=== PATIENT | male | born 1980 | race Native Hawaiian/Other Pacific Islander ===

== ENCOUNTER 2017-11-27 14:35 | Emergency (ER) | payer OTHER ==
[~2017-11-27] VITALS: Ht 177.8 cm; Wt 73.0 kg
[~2017-11-27 14:35] MED LIST: IBUP-232 PO; LORT5TAB PO
[2017-11-27 14:57] VITALS: BP 130/62; PULSE 66; RESP 22; TEMP 98.5; O2SAT 99
[2017-11-27] MEDS ORDERED: ORPHENADRINE INJ 60 MG/2 ML AMP IV ONE (15:30)
[2017-11-27] MEDS ORDERED: ONDANSETRON ODT 4 MG TAB PO ONE (15:30)
[2017-11-27] MEDS ORDERED: MORPHINE SULFATE 4 MG/ML INJ IV PUSH ONE (15:30)
[2017-11-27] MEDS ORDERED: KETOROLAC TROMETHAMINE 30 MG/ML (IVP) VIAL IV PUSH ONE (15:30)
--- NOTE | 2017-11-27 15:34 | PD ---
HPI Chief Complaint: Back/ Neck Pain or Injury Time Seen by Provider: 15:21 Travel History International Travel<30 days: No Contact w/Intl Traveler<30days: No Traveled to known affect area: No History of Present Illness HPI 37-year-old male presents for evaluation of low back pain. Reports that this morning he was bending over when he felt a sudden sharp pain in his lower back. Pain is sharp and constant, worse with movement. Denies any numbness tingling or weakness lower extremities, bowel or bladder incontinence, saddle anesthesia, abdominal pain, flank pain, nausea or vomiting. He tried using ibuprofen, diclofenac cream and hydrocodone acetaminophen with minimal relief. No other complaints. [facility] Social History Alcohol Use: Yes Tobacco Use: No Substance Use: No Allergies-Medications (Allergen,Severity, Reaction): Coded Allergies: No Known Allergies (Verified Adverse Reaction, Unknown, 11/27/17) Reported Meds & Prescriptions Reported Meds & Active Scripts Active Baclofen 10 Mg Tab 10 Mg PO Q8HR 10 Days Percocet (Oxycodone-Acetaminophen) 5-325 mg Tab 1 Tab PO Q6H PRN Reported Hydrocodone-Acetaminophen 5-300 Mg Tab 1 Tab PO Q6H PRN Review of Systems Except as stated in HPI: all other systems reviewed are Neg Physical Exam Narrative GENERAL: Well-developed well-nourished male who appears uncomfortable. SKIN: Warm and dry. HEAD: Atraumatic. Normocephalic. EYES: Pupils equal and round. No scleral icterus. No injection or drainage. ENT: No nasal bleeding or discharge. Mucous membranes pink and moist. NECK: Trachea midline. No JVD. CARDIOVASCULAR: Regular rate and rhythm. No murmur appreciated. RESPIRATORY: No accessory muscle use. Clear to auscultation. Breath sounds equal bilaterally. GASTROINTESTINAL: Abdomen soft, non-tender, nondistended. Hepatic and splenic margins not palpable. MUSCULOSKELETAL: No obvious deformities. There is some tenderness to palpation to the lumbar spine and paravertebral musculature. 5 out of 5 muscle strength of the lower extremities bilaterally. NEUROLOGICAL: Awake and alert. No obvious cranial nerve deficits. Motor grossly within normal limits. Normal speech. Data Data Last Documented VS Vital Signs Date Time Temp Pulse Resp B/P (MAP) Pulse Ox O2 Delivery O2 Flow Rate FiO2 11/27/17 14:57 98.5 66 22 130/62 (84) [address] Lumb Spine W/O Contrast (11/27/17 ) Morphine Inj (Morphine Inj) (11/27/17 15:30) Ondansetron Odt (Zofran Odt) (11/27/17 15:30) Ketorolac Inj (Toradol Inj) (11/27/17 15:30) Orphenadrine Inj (Norflex Inj) (11/27/17 15:30) Ed Discharge Order (11/27/17 17:22) MDM Medical Decision Making Medical Screen Exam Complete: Yes Emergency Medical Condition: Yes Medical Record Reviewed: Yes Differential Diagnosis Lumbar strain, compression fracture, spinal stenosis, herniated nucleus pulposus , piriformis syndrome Narrative Course CT of the lumbar spine reveals CONCLUSION: No abnormality is identified to explain the clinical symptoms. There is mild degenerative disc disease at L4-L5 and L5-S1. The patient's pain appears musculoskeletal. He was given IV analgesics with some improvement in his pain. He has a medication similar to diclofenac at home. He will be discharged with a short course of baclofen as well as Percocet for breakthrough pain because he is going to be flying soon. Recommended follow-up close with primary care physician. Diagnosis Primary Impression: Lumbar strain Additional Instructions: Medication as needed. Do not drive or drink alcohol when taking these medications as they may cause sedation. Avoid strenuous activity or heavy lifting. Perform activities of daily living as tolerated. Follow-up with primary care physician. Return for any emergent medical conditions. Med/Other Pt SpecificInfo: Prescription(s) given Scripts Baclofen (Baclofen) 10 Mg Tab 10 MG PO Q8HR for 10 Days, TAB 0 Refills Prov: Gail Torres DO 11/27/17 Oxycodone-Acetaminophen (Percocet) 5-325 mg Tab 1 TAB PO Q6H Y for PAIN, #15 TAB 0 Refills Prov: Gail Torres DO 11/27/17 Disposition: 01 DISCHARGE HOME Condition: Stable Vitaliy Mendoza November 27, 2017 15:34
[2017-11-27] MEDS ORDERED: HYDR-4107 PO (16:02)
--- NOTE | 2017-11-27 17:01 | RADRPT ---
EXAM DATE: 11/27/2017 4:52 PM EDT AGE/SEX: 37 years / Male INDICATIONS: Sudden onset of lower back pain CLINICAL DATA: This is the patient's initial encounter. Patient reports that signs and symptoms have been present for 1 day and indicates a pain score of 8/10. MEDICAL/SURGICAL HISTORY: None. None. RADIATION DOSE: 17.35 CTDI (mGy) COMPARISON: No prior [facility] exams available for comparison. TECHNIQUE: Contiguous axial images were acquired with a multirow detector CT scanner without contras t. Multiplanar reconstructions in the sagittal and coronal plane were also performed. Using automate d exposure control and adjustment of the mA and/or kV according to patient size, radiation dose was k ept as low as reasonably achievable to obtain optimal diagnostic quality images. FINDINGS: Vertebrae: Normal vertebral body height. No fracture or compression deformity is present. Alignment: There is no anterolisthesis or retrolisthesis. T12-L1: No disc herniation, canal stenosis, or neural foraminal stenosis. L1-L2: No disc herniation, canal stenosis, or neural foraminal stenosis. L2-L3: No disc herniation, canal stenosis, or neural foraminal stenosis. L3-L4: No disc herniation, canal stenosis, or neural foraminal stenosis. L4-L5: There is a mild diffuse disc bulge. No spinal canal stenosis or neural foraminal stenosis is present. L5-S1: There is a mild diffuse disc bulge. No spinal canal stenosis or neural foraminal stenosis is present. The visualized paraspinous structures demonstrate no acute finding. CONCLUSION: No abnormality is identified to explain the clinical symptoms. There is mild degenerative disc diseas e at L4-L5 and L5-S1. Electronically signed by: David Trimble MD 11/27/2017 5:00 PM EDT
[2017-11-27] MEDS ORDERED: BACL10TA PO (17:21)
[2017-11-27] MEDS ORDERED: PERC5TAB12 PO (17:21)
== END 2017-11-27 18:34 | disposition home or self-care (01) ==
LOC: NEPD 14:35
DX: S39.012A Strain of muscle, fascia and tendon of lower back, initial encounter (principal); X58.XXXA Exposure to other specified factors, initial encounter
CPT/HCPCS: 72131; 96374; 96375; 99284; J1885; J2270; J2360